=== PATIENT | female | born 1940 | race Hispanic/Latino ===

== ENCOUNTER 2017-07-28 15:20 | Inpatient (IN) | payer OTHER ==
[~2017-07-28] VITALS: Ht 152.4 cm; Wt 90.8 kg
[2017-07-28] MEDS ORDERED: IPRATROPIUM/ALBUTEROL SULFATE 3 ML SOLUTION IH ONE ×2 (15:56→18:23)
[2017-07-28 16:00] LABS: CREATININE 0.7 mg/dL (0.5-1.5); POTASSIUM 4.6 mmol/L (3.5-5.1)
[2017-07-28 16:03] LABS: BASOPHILS % (AUTO) 0.7 % (0.0-5.0); EOSINOPHILS % (AUTO) 2.6 % (0.0-8.0); HEMATOCRIT 35.8 % (36-48); LYMPHOCYTES % (AUTO) 26.3 % (21.0-51.0); MEAN CORPUSCULAR HEMOGLOBIN 30.7 pg (27.0-33.0); MEAN CORPUSCULAR HGB CONC 32.4 g/dL (32.0-36.0); MONOCYTES % (AUTO) 10.2 % (3.0-13.0); NEUTROPHILS % (AUTO) 60.2 % (40.0-77.0); PLATELET COUNT (AUTO) 135 K/uL (130-400); RED BLOOD CELL COUNT(AUTO) 3.77 MIL/uL (4.00-5.50); RED CELL DISTRIBUTION WIDTH 15.8 % (11.0-15.5); WHITE BLOOD COUNT (AUTO) 5.7 K/uL (4.8-10.8)
[2017-07-28 16:05] LABS: ALBUMIN 3.2 g/dL (3.5-5.0); BILIRUBIN,TOTAL 0.2 mg/dL (0.2-1.0); TOTAL PROTEIN, SERUM 6.8 g/dL (6.0-8.3)
[2017-07-28 16:14] LABS: INR 0.93 (0.85-1.15); PARTIAL THROMBOPLASTIN TIME 23.7 SEC (26.3-35.5); PROTHROMBIN TIME 9.8 SEC (9.6-11.6)
[2017-07-28] MEDS ORDERED: FUROSEMIDE 10 MG/ML 4ML VIAL ONE (17:01)
[2017-07-28] MEDS ORDERED: METHYLPREDNISOLONE SOD SUCC 40MG/ML 1ML ONE (17:01)
[2017-07-28] MEDS ORDERED: LEVOFLOXACIN 500 MG/D5W 100 ML 100 ML ONE (17:02)
[2017-07-28] MEDS: LEVOFLOXACIN 500 MG/D5W 100 ML 100 ML IV SCH (17:45)
[2017-07-28] MEDS ORDERED: LACTULOSE 20 GM/30 ML UDCUP PO PRN (17:45)
[2017-07-28] MEDS ORDERED: ONDANSETRON HCL 4 MG/2 ML VIAL IVP PRN (17:45)
[2017-07-28] MEDS: IPRATROPIUM/ALBUTEROL SULFATE 3 ML SOLUTION IH PRN (18:27)
[2017-07-28] MEDS: METHYLPREDNISOLONE SOD SUCC 40MG/ML 1ML IVP SCH (21:00)
[2017-07-29] MEDS: ACETAMINOPHEN 325 MG TAB PO PRN ×2 (01:15→22:41)
[2017-07-29] MEDS ORDERED: LOVA20TA3 PO (01:26)
[2017-07-29] MEDS ORDERED: WARF2TAB57 PO (01:26)
[2017-07-29] MEDS ORDERED: HYDR-4068 PO (01:26)
[2017-07-29] MEDS ORDERED: SERT50TA12 PO (01:26)
[2017-07-29] MEDS ORDERED: CARV12.580 PO (01:26)
[2017-07-29] MEDS ORDERED: ALPR-409 PO (01:26)
[2017-07-29] MEDS ORDERED: WARF1TAB46 PO (01:26)
[2017-07-29] MEDS ORDERED: POTASSIUM CHLORIDE 20MEQ/100ML 100 ML IV PRN (01:30)
[2017-07-29] MEDS ORDERED: POTASSIUM CHLORIDE 10% ELIXIR 20 MEQ/15 ML UDCUP PO PRN (01:30)
[2017-07-29] MEDS ORDERED: LIDOCAINE HCL-MPF 1% 2ML VIAL IVP PRN (01:30)
[2017-07-29] MEDS ORDERED: POTASSIUM CHLORIDE 20 MEQ ERTAB PO PRN (01:30)
[2017-07-29] MEDS ORDERED: HYDRALAZINE HCL 20 MG/ML VIAL IV PRN (01:30)
[2017-07-29] MEDS ORDERED: ONDANSETRON HCL MDV 20ML 2 MG/ML VIAL IVP PRN (01:45)
[2017-07-29 03:00] VITALS: BP 156/71
[2017-07-29 04:47] LABS: CREATININE 0.8 mg/dL (0.5-1.5); POTASSIUM 4.5 mmol/L (3.5-5.1)
[2017-07-29 04:51] LABS: BASOPHILS % (AUTO) 0.2 % (0.0-5.0); HEMATOCRIT 36.9 % (36-48); LYMPHOCYTES % (AUTO) 21.4 % (21.0-51.0); MEAN CORPUSCULAR HEMOGLOBIN 30.8 pg (27.0-33.0); MEAN CORPUSCULAR HGB CONC 32.9 g/dL (32.0-36.0); MEAN CORPUSCULAR VOLUME 93.6 fL (79-99); MONOCYTES % (AUTO) 2.2 % (3.0-13.0); NEUTROPHILS % (AUTO) 76.2 % (40.0-77.0); PLATELET COUNT (AUTO) 146 K/uL (130-400); RED BLOOD CELL COUNT(AUTO) 3.94 MIL/uL (4.00-5.50); RED CELL DISTRIBUTION WIDTH 14.8 % (11.0-15.5)
[2017-07-29 05:13] LABS: B-TYPE NATRIURETIC PEPTIDE 485 pg/mL (0-100)
[2017-07-29] MEDS: IPRATROPIUM/ALBUTEROL SULFATE 3 ML SOLUTION IH PRN ×3 (06:56→17:28)
[2017-07-29 08:17] VITALS: BP 157/78
[2017-07-29] MEDS: GUAIFENESIN SUGAR-FREE 100 MG/5 ML UDCUP PO PRN (09:02)
[2017-07-29] MEDS: METHYLPREDNISOLONE SOD SUCC 40MG/ML 1ML IVP SCH ×3 (09:03→20:25)
[2017-07-29] MEDS: FAMOTIDINE 20MG TAB 20 MG TAB PO SCH (09:03)
[2017-07-29] MEDS: FUROSEMIDE 10 MG/ML 4ML VIAL IVP SCH (09:03)
[2017-07-29 12:29] VITALS: BP 144/67
[2017-07-29] MEDS: SERTRALINE HCL 50 MG TABLET PO SCH (15:07)
[2017-07-29] MEDS: ALPRAZOLAM 0.25 MG TABLET PO SCH ×2 (15:08→20:26)
[2017-07-29] MEDS: LEVOFLOXACIN 500 MG/D5W 100 ML 100 ML IV SCH (17:47)
[2017-07-29 17:56] VITALS: BP 108/59
[2017-07-29 20:00] VITALS: BP 145/90
[2017-07-29] MEDS: ATORVASTATIN CALCIUM 10 MG TABLET PO SCH (20:26)
[2017-07-29] MEDS: CARVEDILOL 12.5 MG TABLET PO SCH (20:26)
[2017-07-29] MEDS ORDERED: ALPRAZOLAM 0.25 MG TABLET PO SCH (21:00)
[2017-07-29] MEDS: ZOLPIDEM TARTRATE 5 MG TAB PO PRN (22:41)
[2017-07-29 23:52] VITALS: BP 149/59
[2017-07-30 04:00] VITALS: BP 173/81
[2017-07-30 06:02] LABS: BASOPHILS % (AUTO) 0.1 % (0.0-5.0); HEMATOCRIT 39.8 % (36-48); LYMPHOCYTES % (AUTO) 13.7 % (21.0-51.0); MEAN CORPUSCULAR HEMOGLOBIN 31.3 pg (27.0-33.0); MEAN CORPUSCULAR VOLUME 92.1 fL (79-99); MONOCYTES % (AUTO) 5.6 % (3.0-13.0); NEUTROPHILS % (AUTO) 80.6 % (40.0-77.0); PLATELET COUNT (AUTO) 178 K/uL (130-400); RED BLOOD CELL COUNT(AUTO) 4.32 MIL/uL (4.00-5.50); RED CELL DISTRIBUTION WIDTH 15.1 % (11.0-15.5); WHITE BLOOD COUNT (AUTO) 7.5 K/uL (4.8-10.8)
[2017-07-30 06:14] LABS: CREATININE 0.8 mg/dL (0.5-1.5); POTASSIUM 4.1 mmol/L (3.5-5.1)
[2017-07-30 06:19] LABS: B-TYPE NATRIURETIC PEPTIDE 304 pg/mL (0-100)
[2017-07-30 06:41] LABS: HEMOGLOBIN A1C 5.4 % (4.0-6.0)
[2017-07-30 08:00] VITALS: BP 143/76
[2017-07-30] MEDS ORDERED: SERTRALINE HCL 50 MG TABLET PO SCH (09:00)
[2017-07-30] MEDS ORDERED: IOPAMIDOL-370 100 ML VIAL IV ONE (09:36)
[2017-07-30] MEDS: FUROSEMIDE 10 MG/ML 4ML VIAL IVP SCH (10:43)
[2017-07-30] MEDS: CARVEDILOL 12.5 MG TABLET PO SCH ×2 (10:43→21:19)
[2017-07-30] MEDS: METHYLPREDNISOLONE SOD SUCC 40MG/ML 1ML IVP SCH ×3 (10:43→21:12)
[2017-07-30] MEDS: SERTRALINE HCL 50 MG TABLET PO SCH (10:44)
[2017-07-30] MEDS: FAMOTIDINE 20MG TAB 20 MG TAB PO SCH (10:44)
[2017-07-30] MEDS: ALPRAZOLAM 0.25 MG TABLET PO SCH ×2 (10:44→21:08)
[2017-07-30 12:00] VITALS: BP 145/71
[2017-07-30 16:00] VITALS: BP 158/59
[2017-07-30] MEDS: LEVOFLOXACIN 500 MG/D5W 100 ML 100 ML IV SCH (17:09)
[2017-07-30] MEDS: HYDROCODONE/ACETAMINOPHEN 10/325 MG TAB PO PRN (17:25)
[2017-07-30 20:00] VITALS: BP 140/77
[2017-07-30] MEDS: ATORVASTATIN CALCIUM 10 MG TABLET PO SCH (21:08)
[2017-07-30] MEDS: ZOLPIDEM TARTRATE 5 MG TAB PO PRN (22:07)
[2017-07-30 23:55] VITALS: BP 150/87
[2017-07-31 04:00] VITALS: BP 141/91
[2017-07-31] MEDS: ACETAMINOPHEN 325 MG TAB PO PRN (04:39)
[2017-07-31 06:22] LABS: BASOPHILS % (AUTO) 0.1 % (0.0-5.0); HEMATOCRIT 41.7 % (36-48); LYMPHOCYTES % (AUTO) 15.4 % (21.0-51.0); MEAN CORPUSCULAR HEMOGLOBIN 31.1 pg (27.0-33.0); MEAN CORPUSCULAR HGB CONC 33.6 g/dL (32.0-36.0); MEAN CORPUSCULAR VOLUME 92.5 fL (79-99); NEUTROPHILS % (AUTO) 77.5 % (40.0-77.0); PLATELET COUNT (AUTO) 189 K/uL (130-400); RED BLOOD CELL COUNT(AUTO) 4.51 MIL/uL (4.00-5.50); WHITE BLOOD COUNT (AUTO) 7.7 K/uL (4.8-10.8)
[2017-07-31 06:35] LABS: CREATININE 0.9 mg/dL (0.5-1.5)
[2017-07-31 06:44] LABS: B-TYPE NATRIURETIC PEPTIDE 150 pg/mL (0-100)
[2017-07-31 08:27] VITALS: BP 163/91
[2017-07-31] MEDS: METHYLPREDNISOLONE SOD SUCC 40MG/ML 1ML IVP SCH ×3 (09:07→21:07)
[2017-07-31] MEDS: FUROSEMIDE 10 MG/ML 4ML VIAL IVP SCH (09:07)
[2017-07-31] MEDS: ALPRAZOLAM 0.25 MG TABLET PO SCH ×2 (09:08→21:06)
[2017-07-31] MEDS: FAMOTIDINE 20MG TAB 20 MG TAB PO SCH (09:08)
[2017-07-31] MEDS: SERTRALINE HCL 50 MG TABLET PO SCH (09:08)
[2017-07-31] MEDS: CARVEDILOL 12.5 MG TABLET PO SCH ×2 (09:09→21:07)
[2017-07-31] MEDS: HYDROCODONE/ACETAMINOPHEN 10/325 MG TAB PO PRN (09:10)
[2017-07-31] MEDS ORDERED: MAG HYDROX/AL HYDROX/SIMETH ES 30 ML SUSP UDCUP PO PRN (10:15)
[2017-07-31 12:35] VITALS: BP 132/61
[2017-07-31] MEDS: PANTOPRAZOLE 40 MG/VIAL IVP SCH (14:43)
[2017-07-31 16:00] VITALS: BP 154/87
[2017-07-31 20:00] VITALS: BP 145/70
[2017-07-31] MEDS: GUAIFENESIN SUGAR-FREE 100 MG/5 ML UDCUP PO PRN (21:06)
[2017-07-31] MEDS: ZOLPIDEM TARTRATE 5 MG TAB PO PRN (21:06)
[2017-07-31] MEDS: ATORVASTATIN CALCIUM 10 MG TABLET PO SCH (21:06)
[2017-07-31] MEDS: LEVOFLOXACIN 500 MG/D5W 100 ML 100 ML IV SCH (21:14)
[2017-08-01] VITALS (11 sets, daily range): BP systolic 117–191; BP diastolic 60–94
[2017-08-01] MEDS: ALPRAZOLAM 0.25 MG TABLET PO SCH (09:00)
[2017-08-01] MEDS: SERTRALINE HCL 50 MG TABLET PO SCH (09:00)
[2017-08-01] MEDS ORDERED: DOXY100T2 PO (09:46)
[2017-08-01] MEDS: FUROSEMIDE 10 MG/ML 4ML VIAL IVP SCH (09:51)
[2017-08-01] MEDS: PANTOPRAZOLE 40 MG/VIAL IVP SCH (09:51)
[2017-08-01] MEDS: CARVEDILOL 12.5 MG TABLET PO SCH (09:52)
[2017-08-01 10:40] LABS: INR 0.99 (0.85-1.15); PROTHROMBIN TIME 10.4 SEC (9.6-11.6)
[2017-08-01] MEDS ORDERED: LIDOCAINE HCL 1% 10 ML VIAL ONE (11:13)
[2017-08-01] MEDS ORDERED: FENTANYL CITRATE PF 50 MCG/1 ML 2ML VIAL ONE (11:20)
[2017-08-01] MEDS: HYDROCODONE/ACETAMINOPHEN 10/325 MG TAB PO PRN (18:04)
== END 2017-08-01 18:50 | disposition home or self-care (01) | DRG 190 ==
LOC: EDH 15:20 → EDHIP 17:15 → 3BH 23:32
PROVIDERS: ADMIT Family Medicine; ATTEND Family Medicine
PROC: 0BBC3ZX Excision of Right Upper Lung Lobe, Percutaneous Approach, Diagnostic (ICD-10-PCS; principal; 2017-08-01)
DX: J44.1 Chronic obstructive pulmonary disease with (acute) exacerbation (principal); I50.33 Acute on chronic diastolic (congestive) heart failure; J96.11 Chronic respiratory failure with hypoxia; I42.9 Cardiomyopathy, unspecified; E66.01 Morbid (severe) obesity due to excess calories; Z99.81 Dependence on supplemental oxygen; I11.0 Hypertensive heart disease with heart failure; W06.XXXA Fall from bed, initial encounter; M81.0 Age-related osteoporosis without current pathological fracture; E78.5 Hyperlipidemia, unspecified; F17.200 Nicotine dependence, unspecified, uncomplicated; M19.90 Unspecified osteoarthritis, unspecified site; D18.03 Hemangioma of intra-abdominal structures; E11.9 Type 2 diabetes mellitus without complications; F32.9 Major depressive disorder, single episode, unspecified; F41.9 Anxiety disorder, unspecified; G47.33 Obstructive sleep apnea (adult) (pediatric); I71.4 Abdominal aortic aneurysm, without rupture; K29.70 Gastritis, unspecified, without bleeding; K57.90 Diverticulosis of intestine, part unspecified, without perforation or abscess without bleeding; K76.0 Fatty (change of) liver, not elsewhere classified; Z96.649 Presence of unspecified artificial hip joint; Z68.39 Body mass index [BMI] 39.0-39.9, adult; Y93.89 Activity, other specified; Y92.89 Other specified places as the place of occurrence of the external cause; Y99.8 Other external cause status; Z83.3 Family history of diabetes mellitus; Z80.0 Family history of malignant neoplasm of digestive organs; R91.8 Other nonspecific abnormal finding of lung field
CPT/HCPCS: 32405; 36415; 70450; 71045; 71250; 74177; 76700; 77012; 78306; 80048; 80053; 82550; 83036; 83880; 84443; 84484; 85025; 85610; 85730; 88305; 93005; 93306; 94640; 94664; A9503; C9113; J1940; J1956; J2920; J3010; J3490; Q9967

== ENCOUNTER 2017-08-11 15:41 | Inpatient (IN) | payer OTHER ==
[~2017-08-11] VITALS: Ht 152.4 cm; Wt 97.3 kg
[~2017-08-11 15:41] MED LIST: ALPR-409 PO; CARV12.580 PO; DOXY100T2 PO; HYDR-4068 PO; LOVA20TA3 PO; SERT50TA12 PO
[2017-08-11] MEDS ORDERED: IPRATROPIUM/ALBUTEROL SULFATE 3 ML SOLUTION IH ONE ×3 (16:27→22:20)
[2017-08-11 16:43] LABS: BASOPHILS % (AUTO) 0.6 % (0.0-5.0); EOSINOPHILS % (AUTO) 1.2 % (0.0-8.0); LYMPHOCYTES % (AUTO) 13.4 % (21.0-51.0); MEAN CORPUSCULAR HEMOGLOBIN 31.9 pg (27.0-33.0); MEAN CORPUSCULAR HGB CONC 33.6 g/dL (32.0-36.0); MONOCYTES % (AUTO) 8.2 % (3.0-13.0); NEUTROPHILS % (AUTO) 76.6 % (40.0-77.0); PLATELET COUNT (AUTO) 128 K/uL (130-400); RED BLOOD CELL COUNT(AUTO) 3.58 MIL/uL (4.00-5.50); RED CELL DISTRIBUTION WIDTH 15.1 % (11.0-15.5); WHITE BLOOD COUNT (AUTO) 8.3 K/uL (4.8-10.8)
[2017-08-11 16:52] LABS: CREATININE 0.6 mg/dL (0.5-1.5); POTASSIUM 4.2 mmol/L (3.5-5.1)
[2017-08-11 16:57] LABS: ALBUMIN 2.7 g/dL (3.5-5.0); BILIRUBIN,TOTAL 0.3 mg/dL (0.2-1.0); TOTAL PROTEIN, SERUM 6.4 g/dL (6.0-8.3)
[2017-08-11] MEDS ORDERED: SODIUM CHLORIDE 0.9% 500ML 500 ML IV ONE (18:09)
[2017-08-11] MEDS ORDERED: METHYLPREDNISOLONE SOD SUCC 125MG/2ML VIAL ONE (18:09)
[2017-08-11] MEDS ORDERED: ISOVUE-370 50ML VIAL IV ONE ×2 (19:26→21:31)
[2017-08-11] MEDS ORDERED: LEVOFLOXACIN 750 MG/D5W 150 ML 150 ML ONE (19:45)
[2017-08-11] MEDS ORDERED: LIDOCAINE HCL-MPF 1% 2ML VIAL IJ PRN (21:00)
[2017-08-11] MEDS ORDERED: ZOLPIDEM TARTRATE 5 MG TAB PO PRN (21:00)
[2017-08-11] MEDS ORDERED: SODIUM CHLORIDE 0.9% 10 ML VIAL IVP PRN (21:00)
[2017-08-11] MEDS ORDERED: NITROGLYCERIN 0.4 MG SL TAB SL PRN (21:00)
[2017-08-11] MEDS ORDERED: ACETAMINOPHEN 325 MG TAB PO PRN ×2 (21:00)
[2017-08-11] MEDS ORDERED: POTASSIUM CHLORIDE 10% ELIXIR 20 MEQ/15 ML UDCUP PO PRN (21:00)
[2017-08-11] MEDS ORDERED: IPRATROPIUM/ALBUTEROL SULFATE 3 ML SOLUTION IH PRN (21:00)
[2017-08-11] MEDS ORDERED: LACTULOSE 20 GM/30 ML UDCUP PO PRN (21:00)
[2017-08-11] MEDS ORDERED: CLONIDINE HCL 0.1 MG TABLET PO PRN (21:00)
[2017-08-11] MEDS: METHYLPREDNISOLONE SOD SUCC 40MG/ML 1ML IVP SCH (21:00)
[2017-08-11] MEDS ORDERED: POTASSIUM CHLORIDE 20 MEQ ERTAB PO PRN (21:00)
[2017-08-11] MEDS ORDERED: POTASSIUM CHLORIDE 20MEQ/100ML 100 ML IV PRN (21:00)
[2017-08-11] MEDS ORDERED: GUAIFENESIN-DM 200/20 MG 10 ML PO PRN (21:00)
[2017-08-11] MEDS: IPRATROPIUM/ALBUTEROL SULFATE 3 ML SOLUTION IH SCH (22:21)
[2017-08-11 23:53] VITALS: BP 141/70
[2017-08-12] MEDS: IPRATROPIUM/ALBUTEROL SULFATE 3 ML SOLUTION IH SCH ×3 (01:40→10:27)
[2017-08-12 03:00] VITALS: BP 139/70
[2017-08-12 03:39] LABS: HEMATOCRIT 34.5 % (36-48); MEAN CORPUSCULAR HGB CONC 33.3 g/dL (32.0-36.0); MEAN CORPUSCULAR VOLUME 93.1 fL (79-99); PLATELET COUNT (AUTO) 127 K/uL (130-400); RED BLOOD CELL COUNT(AUTO) 3.71 MIL/uL (4.00-5.50); RED CELL DISTRIBUTION WIDTH 14.9 % (11.0-15.5); WHITE BLOOD COUNT (AUTO) 4.5 K/uL (4.8-10.8)
[2017-08-12 03:49] LABS: CREATININE 0.5 mg/dL (0.5-1.5); POTASSIUM 4.2 mmol/L (3.5-5.1)
[2017-08-12 08:00] VITALS: BP 138/66
[2017-08-12] MEDS ORDERED: LOSA25TA21 PO (10:14)
[2017-08-12] MEDS ORDERED: FLUT1DIS4 IH (10:16)
[2017-08-12] MEDS: HYDROCODONE/ACETAMINOPHEN 10/325 MG TAB PO PRN ×2 (10:52→17:59)
[2017-08-12] MEDS: ALPRAZOLAM 0.25 MG TABLET PO SCH ×2 (10:52→20:50)
[2017-08-12] MEDS: METHYLPREDNISOLONE SOD SUCC 40MG/ML 1ML IVP SCH ×2 (10:53→20:50)
[2017-08-12 11:00] VITALS: BP 133/62
[2017-08-12 16:00] VITALS: BP 153/80
[2017-08-12] MEDS: LEVOFLOXACIN 500 MG/D5W 100 ML 100 ML IV SCH (17:58)
[2017-08-12 19:48] VITALS: BP 140/94
[2017-08-12] MEDS: ATORVASTATIN CALCIUM 10 MG TABLET PO SCH (20:50)
[2017-08-12] MEDS: CARVEDILOL 12.5 MG TABLET PO SCH (20:51)
[2017-08-12] MEDS: IPRATROPIUM/ALBUTEROL SULFATE 3 ML SOLUTION IH PRN (22:15)
[2017-08-12 23:42] VITALS: BP 133/73
[2017-08-13 03:44] LABS: HEMATOCRIT 34.1 % (36-48); MEAN CORPUSCULAR HEMOGLOBIN 32.3 pg (27.0-33.0); MEAN CORPUSCULAR HGB CONC 34.2 g/dL (32.0-36.0); MEAN CORPUSCULAR VOLUME 94.3 fL (79-99); PLATELET COUNT (AUTO) 143 K/uL (130-400); RED BLOOD CELL COUNT(AUTO) 3.61 MIL/uL (4.00-5.50); RED CELL DISTRIBUTION WIDTH 14.9 % (11.0-15.5); WHITE BLOOD COUNT (AUTO) 6.4 K/uL (4.8-10.8)
[2017-08-13 03:59] LABS: CREATININE 0.7 mg/dL (0.5-1.5); POTASSIUM 4.4 mmol/L (3.5-5.1)
[2017-08-13 04:00] VITALS: BP 144/74
[2017-08-13 08:00] VITALS: BP 153/72
[2017-08-13] MEDS: METHYLPREDNISOLONE SOD SUCC 40MG/ML 1ML IVP SCH ×2 (08:14→20:40)
[2017-08-13] MEDS: ALPRAZOLAM 0.25 MG TABLET PO SCH ×2 (08:14→20:32)
[2017-08-13] MEDS: CARVEDILOL 12.5 MG TABLET PO SCH ×2 (08:14→20:32)
[2017-08-13] MEDS: HYDROCODONE/ACETAMINOPHEN 10/325 MG TAB PO PRN ×2 (08:16→12:59)
[2017-08-13] MEDS ORDERED: SERTRALINE HCL 50 MG TABLET PO SCH (09:00)
[2017-08-13 11:00] VITALS: BP 146/92
[2017-08-13 16:00] VITALS: BP 133/60
[2017-08-13] MEDS: IPRATROPIUM/ALBUTEROL SULFATE 3 ML SOLUTION IH PRN ×2 (18:26→22:11)
[2017-08-13] MEDS: LEVOFLOXACIN 500 MG/D5W 100 ML 100 ML IV SCH (18:29)
[2017-08-13 19:20] VITALS: BP 153/86
[2017-08-13 20:32] VITALS: BP 153/86
[2017-08-13] MEDS: ATORVASTATIN CALCIUM 10 MG TABLET PO SCH (20:32)
== END 2017-08-13 20:40 | disposition home or self-care (01) | DRG 191 ==
LOC: EDH 15:41 → EDHIP 20:19 → OBSVTOIN 20:19 → 3AH 23:31
PROVIDERS: ADMIT Family Medicine; ATTEND Family Medicine
DX: J44.1 Chronic obstructive pulmonary disease with (acute) exacerbation (principal); J96.11 Chronic respiratory failure with hypoxia; Z99.81 Dependence on supplemental oxygen; C34.92 Malignant neoplasm of unspecified part of left bronchus or lung; E66.01 Morbid (severe) obesity due to excess calories; E44.1 Mild protein-calorie malnutrition; J98.11 Atelectasis; Z68.41 Body mass index [BMI] 40.0-44.9, adult; E78.5 Hyperlipidemia, unspecified; F17.210 Nicotine dependence, cigarettes, uncomplicated; F32.9 Major depressive disorder, single episode, unspecified; I10 Essential (primary) hypertension; M19.90 Unspecified osteoarthritis, unspecified site; M81.0 Age-related osteoporosis without current pathological fracture
CPT/HCPCS: 36415; 71045; 71260; 80048; 80053; 82550; 82948; 84484; 85025; 85027; 87040; 93005; 94640; 94664; J1956; J2920; J2930; J7040; Q9967

== ENCOUNTER 2017-08-26 09:38 | Observation (INO) | payer OTHER ==
[~2017-08-26] VITALS: Ht 154.9 cm; Wt 121.0 kg
[~2017-08-26 09:38] MED LIST changes: -DOXY100T2 PO; +FLUT1DIS4 IH; +LOSA25TA21 PO
[2017-08-26] MEDS ORDERED: IPRATROPIUM/ALBUTEROL SULFATE 3 ML SOLUTION IH ONE ×3 (09:52→09:59)
[2017-08-26 10:06] LABS: BASOPHILS % (AUTO) 0.7 % (0.0-5.0); EOSINOPHILS % (AUTO) 9.6 % (0.0-8.0); HEMATOCRIT 35.7 % (36-48); LYMPHOCYTES % (AUTO) 16.1 % (21.0-51.0); MEAN CORPUSCULAR HEMOGLOBIN 31.3 pg (27.0-33.0); MEAN CORPUSCULAR HGB CONC 32.8 g/dL (32.0-36.0); MEAN CORPUSCULAR VOLUME 95.6 fL (79-99); MONOCYTES % (AUTO) 7.4 % (3.0-13.0); NEUTROPHILS % (AUTO) 66.2 % (40.0-77.0); PLATELET COUNT (AUTO) 173 K/uL (130-400); RED BLOOD CELL COUNT(AUTO) 3.73 MIL/uL (4.00-5.50); RED CELL DISTRIBUTION WIDTH 15.1 % (11.0-15.5)
[2017-08-26] MEDS ORDERED: METHYLPREDNISOLONE SOD SUCC 125MG/2ML VIAL ONE (10:17)
[2017-08-26 10:20] LABS: CREATININE 0.6 mg/dL (0.5-1.5); POTASSIUM 4.4 mmol/L (3.5-5.1)
[2017-08-26 10:22] LABS: INR 0.92 (0.85-1.15); PARTIAL THROMBOPLASTIN TIME 25.4 SEC (26.3-35.5); PROTHROMBIN TIME 9.7 SEC (9.6-11.6)
[2017-08-26 10:29] LABS: B-TYPE NATRIURETIC PEPTIDE 535 pg/mL (0-100)
[2017-08-26 10:33] LABS: ALBUMIN 3.2 g/dL (3.5-5.0); BILIRUBIN,TOTAL 0.3 mg/dL (0.2-1.0); CREATINE KINASE MB 0.8 ng/mL (0.5-3.6); TOTAL PROTEIN, SERUM 7.3 g/dL (6.0-8.3)
[2017-08-26] MEDS ORDERED: LEVOFLOXACIN 750 MG/D5W 150 ML 150 ML ONE (11:27)
[2017-08-26] MEDS ORDERED: ACETAMINOPHEN 325 MG TAB PO PRN (11:45)
[2017-08-26] MEDS: METHYLPREDNISOLONE SOD SUCC 125MG/2ML VIAL IV SCH ×2 (11:45→20:28)
[2017-08-26] MEDS ORDERED: MAG HYDROX/AL HYDROX/SIMETH ES 30 ML SUSP UDCUP PO PRN (11:45)
[2017-08-26] MEDS ORDERED: LACTULOSE 20 GM/30 ML UDCUP PO PRN (11:45)
[2017-08-26] MEDS ORDERED: MORPHINE SULFATE 2 MG/ML 1ML SYG IV PRN (11:45)
[2017-08-26] MEDS ORDERED: NITROGLYCERIN 0.4 MG SL TAB SL PRN (11:45)
[2017-08-26] MEDS ORDERED: ONDANSETRON HCL MDV 20ML 2 MG/ML VIAL IV PRN (11:45)
[2017-08-26] MEDS ORDERED: HYDRALAZINE HCL 20 MG/ML VIAL IV PRN (11:45)
[2017-08-26] MEDS ORDERED: GUAIFENESIN-DM 200/20 MG 10 ML PO PRN (11:45)
[2017-08-26] MEDS ORDERED: AZITHROMYCIN 500MG+NS 250ML 250 ML IV SCH (12:30)
[2017-08-26] MEDS ORDERED: FLUTICASONE/SALMETEROL 100MCG-50MCG/DISKUS IH PRN (12:45)
[2017-08-26] MEDS: IPRATROPIUM/ALBUTEROL SULFATE 3 ML SOLUTION IH SCH ×2 (13:02→18:21)
[2017-08-26] MEDS: FUROSEMIDE 10 MG/ML 2ML VIAL IV SCH ×2 (13:30→20:30)
[2017-08-26 14:00] VITALS: BP 119/81
[2017-08-26 16:00] VITALS: BP 155/63
[2017-08-26] MEDS: ACETAMINOPHEN-CODEINE 300/30MG TAB PO PRN (16:42)
[2017-08-26] MEDS: ALBUTEROL SULFATE 0.083% 2.5 MG/3 ML INH IH SCH (18:00)
[2017-08-26] MEDS: BUDESONIDE 0.5 MG/2 ML INH IH SCH (18:21)
[2017-08-26 20:00] VITALS: BP 144/60
[2017-08-26] MEDS: FAMOTIDINE 20MG TAB 20 MG TAB PO SCH (20:34)
[2017-08-26] MEDS: CARVEDILOL 12.5 MG TABLET PO SCH (20:35)
[2017-08-26] MEDS: ALPRAZOLAM 0.25 MG TABLET PO SCH (20:35)
[2017-08-26] MEDS ORDERED: SUB PER P&T FOR ASTHMA OR COPD RECOMMENDATION IH SCH (21:00)
[2017-08-27] VITALS: BP 162/90
[2017-08-27] MEDS ORDERED: SODIUM CHLORIDE 3% FOR INHALATION 4 ML/AMP VIAL.NEB IH ONE (00:15)
[2017-08-27] MEDS: IPRATROPIUM/ALBUTEROL SULFATE 3 ML SOLUTION IH SCH ×4 (00:24→17:59)
[2017-08-27 04:00] VITALS: BP 125/76
[2017-08-27] MEDS: METHYLPREDNISOLONE SOD SUCC 125MG/2ML VIAL IV SCH ×3 (04:25→20:04)
[2017-08-27 05:24] LABS: HEMATOCRIT 34.1 % (36-48); MEAN CORPUSCULAR HEMOGLOBIN 30.2 pg (27.0-33.0); MEAN CORPUSCULAR HGB CONC 32.3 g/dL (32.0-36.0); MEAN CORPUSCULAR VOLUME 93.3 fL (79-99); PLATELET COUNT (AUTO) 164 K/uL (130-400); RED BLOOD CELL COUNT(AUTO) 3.65 MIL/uL (4.00-5.50); RED CELL DISTRIBUTION WIDTH 14.6 % (11.0-15.5)
[2017-08-27 05:26] LABS: CREATININE 0.6 mg/dL (0.5-1.5); POTASSIUM 3.4 mmol/L (3.5-5.1)
[2017-08-27 05:40] LABS: B-TYPE NATRIURETIC PEPTIDE 894 pg/mL (0-100)
[2017-08-27] MEDS: FUROSEMIDE 10 MG/ML 2ML VIAL IV SCH (05:59)
[2017-08-27] MEDS: ALBUTEROL SULFATE 0.083% 2.5 MG/3 ML INH IH SCH ×4 (06:00→18:00)
[2017-08-27] MEDS: BUDESONIDE 0.5 MG/2 ML INH IH SCH ×2 (07:17→17:59)
[2017-08-27 08:00] VITALS: BP 111/66
[2017-08-27] MEDS: ACETAMINOPHEN 325 MG TAB PO PRN (08:28)
[2017-08-27] MEDS: ASPIRIN 81MG TAB.CHEW PO SCH (08:39)
[2017-08-27] MEDS: ENOXAPARIN SODIUM 40 MG/0.4 ML SYRINGE SQ SCH (08:39)
[2017-08-27] MEDS: ALPRAZOLAM 0.25 MG TABLET PO SCH ×3 (08:39→20:13)
[2017-08-27] MEDS: CARVEDILOL 12.5 MG TABLET PO SCH ×2 (08:39→20:05)
[2017-08-27] MEDS: FAMOTIDINE 20MG TAB 20 MG TAB PO SCH ×2 (08:39→20:06)
[2017-08-27] MEDS: LEVOFLOXACIN 500 MG/D5W 100 ML 100 ML IV SCH (08:39)
[2017-08-27 11:42] VITALS: BP 120/58
[2017-08-27] MEDS: ACETAMINOPHEN-CODEINE 300/30MG TAB PO PRN (15:10)
[2017-08-27 16:00] VITALS: BP 155/101
[2017-08-27 20:00] VITALS: BP 129/64
[2017-08-28 00:20] VITALS: BP 146/73
[2017-08-28] MEDS: IPRATROPIUM/ALBUTEROL SULFATE 3 ML SOLUTION IH SCH ×5 (00:48→23:51)
[2017-08-28] MEDS: ACETAMINOPHEN-CODEINE 300/30MG TAB PO PRN ×2 (01:43→09:24)
[2017-08-28 04:05] VITALS: BP 135/54
[2017-08-28] MEDS: METHYLPREDNISOLONE SOD SUCC 125MG/2ML VIAL IV SCH ×3 (05:45→21:02)
[2017-08-28] MEDS: ALBUTEROL SULFATE 0.083% 2.5 MG/3 ML INH IH SCH ×2 (06:00)
[2017-08-28 06:03] LABS: HEMATOCRIT 35.6 % (36-48); MEAN CORPUSCULAR HEMOGLOBIN 31.4 pg (27.0-33.0); MEAN CORPUSCULAR HGB CONC 33.8 g/dL (32.0-36.0); PLATELET COUNT (AUTO) 202 K/uL (130-400); RED BLOOD CELL COUNT(AUTO) 3.83 MIL/uL (4.00-5.50); RED CELL DISTRIBUTION WIDTH 15.3 % (11.0-15.5)
[2017-08-28 06:26] LABS: CREATININE 0.7 mg/dL (0.5-1.5); POTASSIUM 3.6 mmol/L (3.5-5.1)
[2017-08-28] MEDS: BUDESONIDE 0.5 MG/2 ML INH IH SCH ×2 (06:52→18:28)
[2017-08-28 07:13] LABS: LYMPHOCYTES % (MANUAL) 8 % (22-44); MAN.DIFF COMMENT-IMPRESSION MANUAL DIFFERENTIAL; MONOCYTES % (MANUAL) 6 % (2-9); PLATELET MORPHOLOGY COMMENT ADEQUATE; SEGMENTED NEUTROPHILS % 86 % (40-70)
[2017-08-28 08:00] VITALS: BP 149/87
[2017-08-28] MEDS: ALPRAZOLAM 0.25 MG TABLET PO SCH ×3 (09:23→21:02)
[2017-08-28] MEDS: CARVEDILOL 12.5 MG TABLET PO SCH ×2 (09:23→21:03)
[2017-08-28] MEDS: FAMOTIDINE 20MG TAB 20 MG TAB PO SCH ×2 (09:23→21:02)
[2017-08-28] MEDS: POLYETHYLENE GLYCOL 3350 17 GM POWD.PACK PO SCH (09:23)
[2017-08-28] MEDS: LEVOFLOXACIN 500 MG/D5W 100 ML 100 ML IV SCH (09:23)
[2017-08-28] MEDS: ENOXAPARIN SODIUM 40 MG/0.4 ML SYRINGE SQ SCH (09:24)
[2017-08-28] MEDS: ASPIRIN 81MG TAB.CHEW PO SCH (09:24)
[2017-08-28 11:00] VITALS: BP 117/61
[2017-08-28 16:00] VITALS: BP 136/66
[2017-08-28 20:00] VITALS: BP 146/94
[2017-08-29] VITALS: BP 144/82
[2017-08-29] MEDS: ACETAMINOPHEN 325 MG TAB PO PRN (00:44)
[2017-08-29 04:00] VITALS: BP 156/76
[2017-08-29] MEDS: METHYLPREDNISOLONE SOD SUCC 125MG/2ML VIAL IV SCH (04:16)
[2017-08-29] MEDS: IPRATROPIUM/ALBUTEROL SULFATE 3 ML SOLUTION IH SCH ×2 (05:30→11:28)
[2017-08-29] MEDS: BUDESONIDE 0.5 MG/2 ML INH IH SCH (07:12)
[2017-08-29 07:30] VITALS: BP 149/88
[2017-08-29] MEDS ORDERED: CARVEDILOL 6.25 MG TABLET PO SCH (09:00)
[2017-08-29] MEDS: POLYETHYLENE GLYCOL 3350 17 GM POWD.PACK PO SCH (09:53)
[2017-08-29] MEDS: FAMOTIDINE 20MG TAB 20 MG TAB PO SCH (09:55)
[2017-08-29] MEDS: ACETAMINOPHEN-CODEINE 300/30MG TAB PO PRN (09:55)
[2017-08-29] MEDS: ASPIRIN 81MG TAB.CHEW PO SCH (09:55)
[2017-08-29] MEDS: ALPRAZOLAM 0.25 MG TABLET PO SCH (09:55)
[2017-08-29] MEDS: ENOXAPARIN SODIUM 40 MG/0.4 ML SYRINGE SQ SCH (09:57)
[2017-08-29] MEDS: LEVOFLOXACIN 500 MG/D5W 100 ML 100 ML IV SCH (09:57)
[2017-08-29 11:00] VITALS: BP 141/81
[2017-08-29 16:00] VITALS: BP 135/65
== END 2017-08-29 18:15 ==
LOC: EDH 09:38 → INTOOBSV 11:16 → EDHIP 11:16 → OBSVTOIN 11:16 → 3DH 13:49
PROVIDERS: ADMIT Internal Medicine; ATTEND Internal Medicine
DX: J44.1 Chronic obstructive pulmonary disease with (acute) exacerbation (principal); I11.0 Hypertensive heart disease with heart failure; I50.31 Acute diastolic (congestive) heart failure; J96.10 Chronic respiratory failure, unspecified whether with hypoxia or hypercapnia; E78.5 Hyperlipidemia, unspecified; F41.9 Anxiety disorder, unspecified; M81.0 Age-related osteoporosis without current pathological fracture; Z85.118 Personal history of other malignant neoplasm of bronchus and lung; Z80.0 Family history of malignant neoplasm of digestive organs
CPT/HCPCS: 36415 ×3; 71045; 71046; 80048 ×2; 80053; 82550; 82553; 83880 ×2; 84484; 85025 ×2; 85027; 85610; 85730; 93005; 93970; 94640 ×23; 94664; 96365; 96366 ×2; 96372 ×3; 96375; 96376 ×3; 97039; 97116 ×3; 97161; 97530; 99285; G0378 ×79; G8978; G8979; G8980; G8981; G8982; G8983; J1650 ×3; J1940 ×2; J1956 ×4; J2930 ×9